=== PATIENT | male | born 1980 ===

== ENCOUNTER 2017-04-27 08:08 | Emergency (ER) | payer OTHER ==
[2017-04-27] MEDS ORDERED: Naproxen 550 mg Tab PO STA (08:25)
--- NOTE | 2017-04-27 08:28 | C.PDOC ---
History Of Present Illness 37 yo male, presents with back pain for last 3-4 days. pt states pain with movment. pt states he believes the pain is from "sitting funny". pt states pain radiates down both legs. no known direct trauma. no abd pain no hematuria, no numbness, no saddle anesthesia Time Seen by Provider: 04/27/17 08:19 Chief Complaint (Nursing): Back Pain Past Medical History Reviewed: Historical Data, Nursing Documentation, Vital Signs Vital Signs: Last Vital Signs Temp 98 F 04/27/17 09:32 Pulse 57 L 04/27/17 09:32 Resp 20 04/27/17 09:32 BP 131/88 04/27/17 09:32 Pulse Ox 97 04/27/17 09:36 Surgical History: Appendectomy Family History: States: Unknown Family Hx - Social History Hx Alcohol Use: Yes Hx Substance Use: Yes - Immunization History Hx Tetanus Toxoid Vaccination: No Hx Influenza Vaccination: No Hx Pneumococcal Vaccination: No Review Of Systems Musculoskeletal: Positive for: Back Pain Physical Exam - Physical Exam Appears: Well, No Acute Distress Skin: Normal Color, Warm, Dry Eye(s): bilateral: Normal Inspection, PERRL, EOMI Nose: Normal Throat: Normal Neck: Normal Cardiovascular: Rhythm Regular Respiratory: Normal Breath Sounds Gastrointestinal/Abdominal: Normal Exam Back: Normal Inspection, No Vertebral Tenderness, Paraspinal Tenderness (lumbar) , Straight Leg Raising ((+)left) Extremity: Normal ROM ED Course And Treatment O2 Sat by Pulse Oximetry: 97 Medical Decision Making Medical Decision Making: Progress: Observed on phone in no acute distress neuro intact pain improved. no saddle anesthesia, stable for outpt f/u Disposition - Disposition Referrals: [facility] [Outside] [facility] [Outside] [facility] [Outside] Raymond Adrian MD [Non-Staff] - Disposition: HOME/ ROUTINE Disposition Time: 13:23 Condition: STABLE Additional Instructions: follow up with your doctor. return to er with worsening symptoms or concerns. you may need further diagnostic workup as an outpt . return to er with any concern. Prescriptions: Cyclobenzaprine [Cyclobenzaprine HCl] 10 mg PO DAILY PRN #10 tab PRN Reason: Muscle Spasm Naproxen [Naprosyn] 500 mg PO BID PRN #14 tablet PRN Reason: Pain, Mild (1-3) Instructions: Acute Low Back Pain (ED) Forms: [facility] ([place]) - Clinical Impression Clinical Impression: Low back pain
[2017-04-27] MEDS ORDERED: Naproxen 550 mg Tab PO ONE (08:35)
[2017-04-27 09:09] LABS: SQUAMOUS EPITHIAL 2 /hpf (0-5); URINE BILIRUBIN NEGATIVE (NEGATIVE); URINE BLOOD NEGATIVE (NEGATIVE); URINE CLARITY Clear (Clear); URINE COLOR Yellow (YELLOW); URINE GLUCOSE (UA) NORMAL (Normal); URINE LEUKOCYTE ESTERASE NEG Leu/uL (Negative); URINE NITRATE NEGATIVE (NEGATIVE); URINE PROTEIN NEGATIVE (NEGATIVE); URINE UROBILINOGEN NORMAL mg/dL (0.2-1.0)
[2017-04-27 09:32] VITALS: BP 131/88; PULSE 57; RESP 20; TEMP 98
[2017-04-27 09:36] VITALS: O2SAT 97
== END 2017-04-27 09:38 | disposition home or self-care (01) ==
LOC: C.ER 08:08
DX: M54.5 Low back pain (principal)